=== PATIENT | male | born 1950 | race Caucasian/White ===

== ENCOUNTER 2016-11-23 22:42 | Emergency (ER) | payer BC ==
[2016-11-23 22:20] LABS: BASOPHILS 0.3 %; BASOPHILS ABSOLUTE 0.02 10/3/uL (0.0-0.16); EOSINOPHILS 1.1 %; EOSINOPHILS ABSOLUTE 0.07 10/3/uL (0.0-0.53); HEMATOCRIT 42.6 % (40.0-51.0); HEMOGLOBIN 14.6 g/dL (13.6-17.8); IMMATURE GRANULOCYTES 0.2 %; IMMATURE GRANULOCYTES ABSOLUTE 0.01 10/3/uL (0.0-0.11); LYMPHOCYTES 34.4 %; LYMPHOCYTES ABSOLUTE 2.14 10/3/uL (0.67-4.30); MEAN CORPUS HGB CONC 34.3 g/dL (32.0-36.0); MEAN CORPUSCULAR HEMOGLOB 31.2 pg (26.0-34.0); MEAN PLATELET VOLUME 9.2 fL (9.2-13.0); MONOCYTES 10.3 %; MONOCYTES ABSOLUTE 0.64 10/3/uL (0.21-1.20); NEUTROPHILS 53.7 %; NEUTROPHILS ABSOLUTE 3.34 10/3/uL (2.02-8.40); PLATELET COUNT 214 10/3/uL (150-400); RBC DISTRIBUTION WIDTH 13.7 % (12.0-16.0); RED CELL COUNT 4.68 10/6/uL (4.7-6.1)
[2016-11-23 22:21] LABS: ER CBC TAT 0 Hrs 09 Mins; MANUAL DIFF NO %; WHITE BLOOD CELLS 6.2 10/3/uL (4.5-10.5)
[2016-11-23 22:29] LABS: INTERNATIONAL NORMAL RATI 1.1 UNITS (-); PARTIAL THROMBO TIME 45.5 SEC (22.5-37.2); PROTIME (NOT ORD) 13.6 SEC (12.0-14.5)
[2016-11-23 22:37] LABS: CALCIUM, SERUM 9.1 MG/DL (8.5-10.4); CHEST PAIN PROFILE TAT 0 Hrs 25 Mins; CHLORIDE, SERUM 105 MMOL/L (96-112); CO2 (CARBON DIOXIDE) 27 MMOL/L (24-34); CREATININE 1.18 MG/DL (0.70-1.30); GFR AFRICAN AMERICAN 74 ML/MIN (>=60); GFR NON AFRICAN AMERICAN 64 ML/MIN (>=60); POTASSIUM, SERUM 4.2 MMOL/L (3.5-5.3); SODIUM, SERUM 139 MMOL/L (135-148); TROPONIN I <0.02 NG/ML (<0.05)
[2016-11-23 22:39] LABS: BUN (BLOOD UREA NITROGEN) 30 MG/DL (6-23); GLUCOSE, SERUM 96 MG/DL (60-99)
[~2016-11-23 22:42] MED LIST: ACET500CAP PO; ALLI60 MG PO; ALTA5 PO; ASAB PO; C5; CALAN120 MG PO; CLARIT10 PO; CRESTOR20 MG PO; DEMA20 PO; GLUCCHONDR PO; GLUCPH PO; LIPITOR40 PO; MOVE FREE PO; MOVEFREE PO; MULTIPLE VIT PO; NITROSTAT0.4 MG SL; OCEAN NAS; PCET PO; PROBIOTIC; PROBIOTIC PO; RANITIDINE300 MG PO; REQUIP XL2 MG PO; REQUIP XL4 MG PO; REQUIP1 PO; REQUIP2 PO; ULTRAM50 PO; V120 PO; VOLT75 PO; VOLTAREN1 % TOP; ZANTAC300 MG PO; ZOCOR40 PO; [UNRECOGNIZED DRUG - CODE]
[2016-11-26] MEDS ORDERED: CRESTOR20 MG PO (15:32)
[2016-11-26] MEDS ORDERED: VOLT75 PO (15:33)
[2016-11-26] MEDS ORDERED: MOVE FREE PO (15:34)
[2016-11-26] MEDS ORDERED: ALTA5 PO (15:34)
[2016-11-26] MEDS ORDERED: MULTIPLE VIT PO (15:37)
[2016-11-26] MEDS ORDERED: GLUCPH PO (15:37)
[2016-11-27] MEDS ORDERED: REQUIP1 PO (08:20)
== END 2016-11-24 00:44 | disposition home or self-care (01) ==
LOC: ER 22:42
PROVIDERS: Specialist
DX: R06.00 Dyspnea, unspecified (principal); I10 Essential (primary) hypertension; E11.9 Type 2 diabetes mellitus without complications; K21.9 Gastro-esophageal reflux disease without esophagitis; Z88.2 Allergy status to sulfonamides; Z79.82 Long term (current) use of aspirin; Z79.899 Other long term (current) drug therapy
CPT/HCPCS: 71020; 71275; 80048; 83735; 84484; 85025; 85610; 85730; 93005; 94640; 99285; A9270-GY; Q9967